=== PATIENT | female | born 1990 | race American Indian/Alaskan Native ===

== ENCOUNTER 2018-02-04 13:31 | Emergency (ER) | payer MEDICAID, OTHER ==
[2018-02-04] MEDS ORDERED: Bacitracin Oint 1 GM U/D Packet TOP ONE ×2 (13:43→13:44)
[2018-02-04] MEDS ORDERED: Lidocaine 1% 30 ML SDV INJECT ONE (13:44)
[2018-02-04 13:50] VITALS: BP 112/68
[2018-02-04 14:22] LABS: ANION GAP 11.5; CHLORIDE,CL 112 mmol/L (101-111); SODIUM,NA 143 mmol/L (135-145)
--- NOTE | 2018-02-04 16:14 | CR ---
Clinical history: 27-year-old female injury to the top of left foot. Interpretation: 3 views left foot demonstrates tiny nodular density soft tissues midfoot on 2 of 3 vi ews associated with mid first/second metatarsal (AP/oblique views). Skin tag? Thrombosed vein? No met allic foreign bodies or calcifications. No inflammatory periostitis. No pathologic skeletal lesion. No left foot fracture or dislocation. No heel spur.
--- NOTE | 2018-02-04 18:28 | EDM.PDOC ---
Scribed by Hansa Leonardo 02/04/18 2802 for Lindy Riddle NP ED HPI GENERAL MEDICAL PROBLEM - General Chief Complaint: Lower Extremity Injury/Pain Stated Complaint: [id number] CUT LEG Time Seen by Provider: 02/04/18 13:35 Source of Information: Reports: Patient, Family, RN, RN Notes Reviewed History Limitations: Reports: Intoxication - History of Present Illness INITIAL COMMENTS - FREE TEXT/NARRATIVE: Patient to ER with c/o laceration to the right thigh. Pt is bleeding and has no shoes on. Her 6 year old daughter is with her. Patient states she locked herself out of her home and had to break a window to crawl through to get in. Child is crying upon arrival. Patient appears impaired upon arrival. She admits to drinking alcohol, denies drug use. Patient admits that [place], tried to crawl through a broken window, and then drove herself and the child to the ER. Patient also c/o pain in the left foot. Onset: Today, Sudden Location: Reports: Lower Extremity, Right Quality: Reports: Sharp, Stabbing Right Upper Leg Pain Score (Numeric/FACES): 8 - Related Data Allergies Allergy/AdvReac Type Severity Reaction Status Date / Time No Known Allergies Allergy Verified 02/04/18 13:42 Home Meds: Home Meds . [No Known Home Meds] 03/04/16 [History] Past Medical History - Past Health History Medical/Surgical History: Denies Medical/Surgical History Social & Family History - Family History Family Medical History: Noncontributory - Tobacco Use Smoking Status *Q: Current Every Day Smoker Years of Tobacco use: 10 Packs/Tins Daily: 1 - Caffeine Use Caffeine Use: Reports: Soda - Recreational Drug Use Recreational Drug Use: No Review of Systems - Review of Systems Review Of Systems: ROS reveals no pertinent complaints other than HPI. ED EXAM, GENERAL - Physical Exam Exam: See Below Exam Limited By: Intoxication General Appearance: Alert, Mild Distress Eye Exam: Bilateral Eye: Conjunctival Injection, PERRL (4, sluggish) Ears: Normal External Exam, Hearing Grossly Normal Nose: Normal Inspection Throat/Mouth: Normal Inspection, Normal Voice, No Airway Compromise Head: Atraumatic, Normocephalic Neck: Normal Inspection, Supple, Non-Tender, Full Range of Motion Cardiovascular: Normal Peripheral Pulses, Regular Rate, Rhythm, No Edema, No Gallop, No JVD, No Murmur, No Rub Peripheral Pulses: 2+: Radial (L), Radial (R), Dorsalis Pedis (L), Dorsalis Pedis (R) GI/Abdominal: Normal Bowel Sounds, Soft, Non-Tender (Female) Exam: Deferred Rectal (Female) Exam: Deferred Back Exam: Normal Inspection, Full Range of Motion, NT Extremities: Normal Range of Motion, No Pedal Edema, Normal Capillary Refill, Leg Pain (Right leg) Neurological: Alert, Oriented, CN II-XII Intact Psychiatric: Anxious, Tearful Skin Exam: Warm, Dry, Wound/Incision (2 lacerations to the right thigh, open abrasions on the left foot) Lymphatic: No Adenopathy ED TRAUMA EXTREMITY PROCEDURES - Laceration/Wound Repair Right Upper Lateral Leg Lac/Wound Length In cm: 9.5 Appearance: Subcutaneous Distal NVT: Neuro & Vascular Intact, No Tendon Injury Anesthetic Type: Local Local Anesthesia - Lidocaine (Xylocaine): 1% Plain Local Anesthetic Volume: Other (15) Skin Prep: Chlorhexidine (Hibiciens) Exploration/Debridement/Repair: Wound Explored, In a Bloodless Field, Explored to Base, No Foreign Material Found Closed With: Sutures Suture Size: 4-0 # of Sutures: 15 Suture Type: Nylon, Interrupted Drain Placement: No Sterile Dressing Applied: Nurse Tetanus Status Addressed: Yes Complications: No Right Upper Distal Leg Lac/Wound Length In cm: 2 Appearance: Superficial Distal NVT: Neuro & Vascular Intact Anesthetic Type: Local Local Anesthesia - Lidocaine (Xylocaine): 1% Plain Local Anesthetic Volume: 2cc Skin Prep: Chlorhexidine (Hibiciens) Exploration/Debridement/Repair: Wound Explored, In a Bloodless Field, Explored to Base, No Foreign Material Found Closed With: Sutures Suture Size: 4-0 # of Sutures: 3 Suture Type: Nylon, Interrupted Course - Vital Signs Last Recorded V/S: Last Vital Signs Temp 98.3 F 02/04/18 13:45 Pulse 76 02/04/18 13:45 Resp 16 02/04/18 13:45 BP 112/68 02/04/18 13:45 Pulse Ox 100 02/04/18 13:45 - Orders/Labs/Meds Orders: Active Orders 24 hr Category Date Time Status DRUG SCREEN URINE BIORAD [URCHEM] Stat Lab 02/04/18 14:48 Ordered HCG QUALITATIVE,URINE [URCHEM] Stat Lab 02/04/18 14:48 Ordered UA W/MICROSCOPIC [URIN] Stat Lab 02/04/18 14:48 Ordered Labs: Laboratory Tests 02/04/18 02/04/18 02/04/18 Range/Units 13:52 13:52 14:48 WBC 3.7 L (5.0-10.0) 10^3/uL RBC 4.75 (4.2-5.4) 10^6/uL Hgb 13.9 (12.0-16.0) g/dL Hct 41.7 (37.0-47.0) % MCV 87.8 (80-100) fL MCH 29.3 (27.0-34.0) pg MCHC 33.3 (33.0-35.0) g/dL Plt Count 274 (150-450) 10^3/uL Neut % (Auto) 49.1 (42.2-75.2) % Lymph % (Auto) 43.3 (20.5-50.1) % [place] % (Auto) 6.0 (2-8) % Eos % (Auto) 1.1 (1.0-3.0) % Baso % (Auto) 0.5 (0.0-1.0) % Sodium 143 (135-145) mmol/L Potassium 3.5 L (3.6-5.0) mmol/L Chloride 112 H (101-111) mmol/L Carbon Dioxide 23.0 (21.0-31.0) mmol/L Anion Gap 11.5 BUN 8 (7-18) mg/dL Creatinine 0.6 (0.6-1.3) mg/dL Est Cr Clr Drug Dosing 124.49 mL/min Estimated GFR (MDRD) > 60 BUN/Creatinine Ratio 13.33 Glucose 83 (74-105) mg/dL Calcium 8.3 L (8.4-10.2) mg/dl Total Bilirubin 0.5 (0.2-1.0) mg/dL AST 20 (10-42) IU/L ALT 14 (10-60) IU/L Alkaline Phosphatase 62 (42-121) IU/L Total Protein 7.4 (6.7-8.2) g/dl Albumin 4.3 (3.2-5.5) g/dl Globulin 3.1 Albumin/Globulin Ratio 1.39 Urine Color Yellow (YELLOW) Urine Appearance Slightly cloudy (CLEAR) Urine pH 6.0 (5.0-9.0) Ur Specific [place] <= 1.005 (1.005-1.030) Urine Protein Negative (NEGATIVE) Urine Glucose (UA) Negative (NEGATIVE) Urine Ketones Negative (NEGATIVE) Urine Occult Blood Negative (NEGATIVE) Urine Nitrite Negative (NEGATIVE) Urine Bilirubin Negative (NEGATIVE) Urine Urobilinogen 0.2 (0.2-1.0) mg/dL Ur Leukocyte Esterase Negative (NEGATIVE) Urine RBC 0-5 /HPF Urine WBC 0-5 (0-5/HPF) /HPF Ur Epithelial Cells Rare /HPF Urine Bacteria Rare (0-FEW/HPF) /HPF Urine Mucus Few H /LPF Urine HCG, Qual Urine Opiates Screen (NEGATIVE) Ur Oxycodone Screen (NEGATIVE) Urine Methadone Screen (NEGATIVE) Ur Barbiturates Screen (NEGATIVE) U Tricyclic Antidepress (NEGATIVE) Ur Phencyclidine Scrn (NEGATIVE) Ur Amphetamine Screen (NEGATIVE) U Methamphetamines Scrn (NEGATIVE) Urine MDMA Screen (NEGATIVE) U Benzodiazepines Scrn (NEGATIVE) Urine Cocaine Screen (NEGATIVE) U Marijuana (THC) Screen (NEGATIVE) Ethyl Alcohol 373 mg/dL 02/04/18 02/04/18 Range/Units 14:48 14:48 WBC (5.0-10.0) 10^3/uL RBC (4.2-5.4) 10^6/uL Hgb (12.0-16.0) g/dL Hct (37.0-47.0) % MCV (80-100) fL MCH (27.0-34.0) pg MCHC (33.0-35.0) g/dL Plt Count (150-450) 10^3/uL Neut % (Auto) (42.2-75.2) % Lymph % (Auto) (20.5-50.1) % [place] % (Auto) (2-8) % Eos % (Auto) (1.0-3.0) % Baso % (Auto) (0.0-1.0) % Sodium (135-145) mmol/L Potassium (3.6-5.0) mmol/L Chloride (101-111) mmol/L Carbon Dioxide (21.0-31.0) mmol/L Anion Gap BUN (7-18) mg/dL Creatinine (0.6-1.3) mg/dL Est Cr Clr Drug Dosing mL/min Estimated GFR (MDRD) BUN/Creatinine Ratio Glucose (74-105) mg/dL Calcium (8.4-10.2) mg/dl Total Bilirubin (0.2-1.0) mg/dL AST (10-42) IU/L ALT (10-60) IU/L Alkaline Phosphatase (42-121) IU/L Total Protein (6.7-8.2) g/dl Albumin (3.2-5.5) g/dl Globulin Albumin/Globulin Ratio Urine Color (YELLOW) Urine Appearance (CLEAR) Urine pH (5.0-9.0) Ur Specific [place] (1.005-1.030) Urine Protein (NEGATIVE) Urine Glucose (UA) (NEGATIVE) Urine Ketones (NEGATIVE) Urine Occult Blood (NEGATIVE) Urine Nitrite (NEGATIVE) Urine Bilirubin (NEGATIVE) Urine Urobilinogen (0.2-1.0) mg/dL Ur Leukocyte Esterase (NEGATIVE) Urine RBC /HPF Urine WBC (0-5/HPF) /HPF Ur Epithelial Cells /HPF Urine Bacteria (0-FEW/HPF) /HPF Urine Mucus /LPF Urine HCG, Qual Negative Urine Opiates Screen Negative (NEGATIVE) Ur Oxycodone Screen Negative (NEGATIVE) Urine Methadone Screen Negative (NEGATIVE) Ur Barbiturates Screen Negative (NEGATIVE) U Tricyclic Antidepress Negative (NEGATIVE) Ur Phencyclidine Scrn Negative (NEGATIVE) Ur Amphetamine Screen Negative (NEGATIVE) U Methamphetamines Scrn Negative (NEGATIVE) Urine MDMA Screen Negative (NEGATIVE) U Benzodiazepines Scrn Negative (NEGATIVE) Urine Cocaine Screen Negative (NEGATIVE) U Marijuana (THC) Screen Negative (NEGATIVE) Ethyl Alcohol mg/dL Meds: Medications Discontinued Medications Generic Name Dose Route Start Last Admin Trade Name Freq PRN Reason Stop Dose Admin Bacitracin 1 dose 02/04/18 13:43 02/04/18 13:51 Bacitracin Oint 1 Gm TOP 02/04/18 13:44 1 dose ONETIME ONE Administration Bacitracin 4 dose 02/04/18 13:44 02/04/18 13:51 Bacitracin Oint 1 Gm TOP 02/04/18 13:45 4 dose ONETIME ONE Administration Lidocaine HCl 30 ml 02/04/18 13:44 02/04/18 13:51 Xylocaine-Mpf 1% INJECT 02/04/18 13:45 30 ml ONETIME ONE Administration - Re-Assessments/Exams Free Text/Narrative Re-Assessment/Exam: 02/04/18 17:52 [facility] was called regarding the welfare of the child. RAMIREZ Mendoza came to the hospital for evaluation of the situation. Patient left the ER AMA with the child just prior to Kelly getting here. Law enforcement Center was called twice regarding the situation, again for the welfare of the child. Patient left the building with the child, and met Kelly outside the facility. Kelly was able to talk with the patient. She did get the patient to agree to turn the child over to a safe democrat, that being the Grandmother. Kelly asked the patient to return to the ER to have her foot x-rayed and finish her ER visit. The patient returned to the waiting room, had her xray, and left the hospital again without being seen in the ER. A 960 form was filed regarding the situation. 02/04/18 18:11 Departure - Departure Time of Disposition: 15:55 Disposition: Against Medical Advice 07 Clinical Impression: Laceration - Discharge Information Referrals: PCP,None [Primary Care Provider] - Forms: ED Department Discharge - My Orders Last 24 Hours: My Active Orders 02/04/18 14:48 DRUG SCREEN URINE BIORAD [URCHEM] Stat HCG QUALITATIVE,URINE [URCHEM] Stat UA W/MICROSCOPIC [URIN] Stat - Assessment/Plan Last 24 Hours: My Active Orders 02/04/18 14:48 DRUG SCREEN URINE BIORAD [URCHEM] Stat HCG QUALITATIVE,URINE [URCHEM] Stat UA W/MICROSCOPIC [URIN] Stat I have read and agree with the documentation that has been completed regarding this visit. By signing this record, I attest that the documentation was completed in my physical presence and is an accurate record of the encounter.
== END 2018-02-04 15:55 | disposition left against medical advice (07) ==
LOC: DL.ED 13:31
DX: S71.111A Laceration without foreign body, right thigh, initial encounter (principal); S90.812A Abrasion, left foot, initial encounter; F10.129 Alcohol abuse with intoxication, unspecified; Y90.8 Blood alcohol level of 240 mg/100 ml or more; W25.XXXA Contact with sharp glass, initial encounter; Y92.009 Unspecified place in unspecified non-institutional (private) residence as the place of occurrence of the external cause
CPT/HCPCS: 12004; 36415; 73630; 80053; 80305; 81001; 81025; 85025; 99284; G0480; 12002

== ENCOUNTER 2024-03-08 22:35 | Emergency (ER) | payer MEDICAID, OTHER | END 2024-03-09 01:04 | disposition left against medical advice (07) | LOC: DL.ED 22:35 | DX: Z53.21 Procedure and treatment not carried out due to patient leaving prior to being seen by health care provider (principal) ==

== ENCOUNTER 2024-05-18 15:35 | Emergency (ER) | payer OTHER ==
[2024-05-18 16:36] VITALS: BP 135/89; PULSE 85
[2024-05-18] MEDS ORDERED: Bacitracin Oint 1 GM U/D Packet TOP ONE (16:40)
[2024-05-18] MEDS: Diphtheria,Pertussis(Acell),Tetanus Vaccine 0.5 ML Syringe IM ONE (16:45)
== END 2024-05-18 16:50 | disposition home or self-care (01) ==
LOC: DL.ED 15:35
DX: S01.312A Laceration without foreign body of left ear, initial encounter (principal); F17.210 Nicotine dependence, cigarettes, uncomplicated; Z86.16 Personal history of COVID-19; Z23 Encounter for immunization; X58.XXXA Exposure to other specified factors, initial encounter
CPT/HCPCS: 90471; 90715; 99282; 99282-25